=== PATIENT | female | born 1980 | race African-American/Black ===

== ENCOUNTER → 2017-07-19 | Outpatient (CLI) | payer BC ==
--- NOTE | 2017-07-19 12:25 | WWHP ---
[facility] - HISTORY AND PHYSICAL DATE OF DICTATION: 07/19/2017 CHIEF COMPLAINT: The patient is here for her routine gynecologic exam. HPI: This is a 37-year-old, G2, P0-0-2-0 with an LMP of 04/28/2017. She recently had a voluntary termination of on 06/24/2017. She states she was at approximately 5 weeks gestation. She was seen at [facility] 1-1/2 weeks ago because of abdominal pain and she states the workup was unremarkable. She was told that she has a fibroid uterus, but this does not cause her any problems. Prior to the recent , she was not using control. She was given a Depo- Provera injection on 07/05/2017 and plans to use this for control for the next 1 to 2 years. She is without gynecologic complaints. Her abdominal pains did resolve. It has been about 6 years since her last Pap smear. PAST MEDICAL HISTORY: Unremarkable. MEDICATIONS: 1. Depo-Provera 150 mg IM q.3 months, and her 1st was given on 07/05/2017. 2. She also takes vitamin D 5000 units daily. ALLERGIES: No known drug allergies. PAST SURGICAL HISTORY: VTP on 07/05/2017. PAST OB HISTORY: She had a spontaneous at age 18 and a VTP at 5 weeks gestation on 06/24/2017. 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 She has no other history of STDs. She was told she has a fibroid uterus as above. SOCIAL HISTORY: She denies tobacco and drug use and has about 2 alcohol-containing drinks per month. She is single and has been with her boyfriend since about 2016, but does not live with him. 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 FAMILY HISTORY: She is adopted, so she does not know her family history. REVIEW OF SYSTEMS: Weight has been stable. She denies respiratory, cardiac or GI problems. PHYSICAL EXAM: Blood pressure 133/70, height 5 feet 7 inches, weight 144 pounds. BMI 22, temperature 96.3, pulse 87. This is a well-developed, well-nourished, black female who is alert and oriented x3, in no acute distress. HEENT is within normal limits. NECK: Supple without mass or thyromegaly. CHEST AND LUNGS: Clear to auscultation. HEART: Regular rate and rhythm. Breasts are without mass or discharge. Axillary exam is negative for adenopathy. Back negative for CVA tenderness. ABDOMEN: Soft and nontender. There is a palpable uterus that is approximately 12 to 14 week size in the suprapubic area that is midline. This is a firm mass consistent with an enlarged uterus. There are no other palpable masses. Pelvic exam normal external genitalia. Cervix and vagina appear normal. There is no unusual discharge and no blood noted in the vagina. There is no cervical motion tenderness. The uterus is enlarged approximately 12 to 14 week size and firm consistent with fibroid uterus. It is slightly irregular and nontender. There are no palpable adnexal masses or tenderness. However, this is somewhat limited secondary to the enlarged uterus. Rectal exam is negative for mass or tenderness. EXTREMITIES: Nontender. IMPRESSION: 1. A 37-year-old female who is approximately 4 weeks status post voluntary termination of , who is now on Depo-Provera for control. 2. Enlarged uterus consistent with a 12 to 14 week-sized fibroid uterus, which is asymptomatic. PLAN: 1. Pap smear was performed. 2. Self breast examination was discussed. 3. We have had a long discussion regarding control options. She already has been started on Depo-Provera and would like to use this for up to 1 to 2 years. She understands that bone strength can decrease with Depo-Provera, especially if used longer term. I have recommended that she not use this for more than 2 years. We have discussed other options including barrier methods, other hormonal methods such as control pills, NuvaRing, and a control patch. We have also discussed the IUD including the ParaGard and Mirena IUDs. We have also discussed sterilization. We have also discussed how hormonal methods could potentiate could cause uterine fibroids to grow. She also understands Depo-Provera can have other side effects including weight gain or irregular bleeding. After a long discussion, she would like to continue on with Depo-Provera as planned. She will be getting these injections at Dr. Le's office as she received the first one. 4. STD prevention was discussed. We have discussed the importance of limiting sexual partners as well as possible condom use to prevent STDs. She states she was tested for STDs including chlamydia when she was in the emergency room 1-1/2 weeks ago and this was negative per the patient. She is declining any other STD testing at this time. 5. Osteoporosis prevention was discussed. We have discussed the importance of adequate calcium, vitamin D and regular exercise, especially with Depo-Provera use. 6. We will obtain the ultrasound report from 07/10/2017 when she was at [facility]. 7. The ACOG handout on uterine fibroids, FAQ 074 was given to the patient. 8. She will call if she is having symptoms from uterine fibroids including pelvic pressure or pelvic discomfort. 9. She will return in 1 year and p.r.n. MMHELGA / LILIAMN: [id number] /
== END | disposition home or self-care (01) ==
LOC: WWCWWP 10:40
PROVIDERS: ATTEND Obstetrics & Gynecology
DX: Z53.9 Procedure and treatment not carried out, unspecified reason (principal)

== ENCOUNTER → 2019-01-02 | Outpatient (CLI) | payer BC ==
[2019-01-02 07:51] VITALS: BP 123/84; PULSE 77; RESP 16; TEMP 98.6; BMI 22.2
--- NOTE | 2019-01-02 08:54 | P.HPOB ---
History of Present Illness H&P Date: 01/02/19 Chief Complaint: The patient is here for her routine gynecologic exam. This is a 38-year-old with an LMP of 04/28/17. The patient has been on Depo-Provera since 07/05/2017 and the 1st one was given shortly after a VTP. Her last DepoProvera injection was given in July 2018. She previously was getting them in Dr. Le's office. She would like to restart the Depo- Provera injections and would like to have them given here. She has not had a menstrual period since starting the Depo-Provera. She is not interested in any other type of hormonal control since she fears that anything containing estrogen may stimulate her uterine fibroids. She denies any symptoms from her uterine fibroids. She has been using condoms or withdrawal for control after missing her Depo-Provera injection 2 months ago. She is complaining of a slight vaginal discharge during the past 2 days and she has noticed a slight odor. The discharge is thin and resembles bacterial vaginosis which she has had before. She denies pruritus. She is otherwise without complaints. Review of Systems The patient's weight has been stable over the last year. She denies respiratory, cardiac, or G.I. problems. 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 She has no other history of STDs. She has a known fibroid uterus approximately 12 weeks size. History of Any Multi-Drug Resistant Organisms: None Reported Additional Past Surgical History / Comment(s): VTPx2. Smoking Status: Former smoker Past Alcohol Use History: Occasional (0-2 per month) Past Drug Use History: None Reported Additional History: She is single and has been with her boyfriend since 2016. They do not live together. 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 - Past Family History Father Family Medical History: Unable to Obtain Additional Family Medical History / Comment(s): The patient has no known family history since she is adopted. Medications and Allergies Home Medications Medication Instructions Recorded Confirmed Type No Known Home Medications 01/02/19 01/02/19 History Allergies Allergy/AdvReac Type Severity Reaction Status Date / Time No Known Allergies Allergy Unverified 01/02/19 07:51 Exam Vital Signs Temp Pulse Resp BP Pulse Ox 01/02/19 07:43 98.6 F 77 16 123/84 100 Intake and Output 01/01/19 01/02/19 01/02/19 22:59 06:59 14:59 Other: Weight 64.41 kg Height 5'7", weight 142 pounds, BMI 22.2. This is a well-developed well-nourished black female who is alert and oriented times 3 in no acute distress. HEENT: Within normal limits. NECK: Supple without mass or thyromegaly. CHEST AND LUNGS: Clear to auscultation. HEART: Regular rate and rhythm. BREASTS: Are without mass or discharge. AXILLARY EXAM: Negative for adenopathy. BACK: Negative for CVA tenderness. ABDOMEN: Soft, nontender, without palpable masses. PELVIC EXAM: Normal external genitalia. Cervix and vagina appear normal. There is a small thin grayish discharge without significant odor. There is no evidence of prolapse. The uterus is midposition, 12 week size and nontender. There are no palpable adnexal masses or tenderness. RECTAL EXAM: negative for mass or tenderness. EXTREMITIES: Nontender. IMPRESSION: 1. 38-year-old female with a 12 week size fibroid uterus which is asymptomatic. 2. Probable bacterial vaginosis. 3. Amenorrhea since starting Depo-Provera injections. She did not have a Depo- Provera injection after her one given in July of this year. She would like to resume Depo-Provera injections here. Plan: 1. Pap smear was deferred since she had a normal one on 07/19/2017. 2. Self breast awareness was discussed with the patient. 3. Metronidazole 500 mg PO BID times 7 days. 4. We had a long discussion regarding control options. She would like to stay on Depo-Provera injections and she would like to use this for about one yea r. She understands that she may not be able to become for up to 18 months after Depo-Provera is discontinued. We also discussed how fertility may decrease with time especially over the age of 40. We also discussed increased risk for chromosomal abnormalities such as down syndrome as she gets older if she is to get . We also again reviewed how Depo-Provera can decrease bone strength with time. We have discussed other options such as the progestin only -control pill as well as barrier methods. She understands these things and would like to restart Depo-Provera. 5. she was instructed to abstain from sexual activity until Depo-Provera is given. She was scheduled in one week on 01/09/2019 to receive her Depo-Provera injection. She will do a serum beta hCG test the day prior to her appointment and she understands that she cannot be given the injection if she is . Depo-Provera 150 mg IM Q3 months. The electronic prescription for this and of the metronidazole will be sent to [facility] pharmacy on in [place]. 6.Osteoporosis prevention was discussed. I have stressed the importance of adequate calcium, vitamin D and regular exercise. Recommended amounts of calcium and vitamin D were also discussed. 7. She will return every 3 months for her Depo-Provera injections. She was advised to return in one year for her annual well woman exam.
== END ==
LOC: WWCWWP 07:25
PROVIDERS: ATTEND Obstetrics & Gynecology
DX: Z53.9 Procedure and treatment not carried out, unspecified reason (principal)

== ENCOUNTER → 2019-01-04 | Outpatient (CLI) | payer BC | END | disposition home or self-care (01) | LOC: LABWHC1 16:35 | PROVIDERS: ATTEND Obstetrics & Gynecology | DX: Z32.00 Encounter for pregnancy test, result unknown (principal); N91.1 Secondary amenorrhea | CPT/HCPCS: 36415; 84702 ==

== ENCOUNTER → 2019-01-09 | Outpatient (CLI) | payer BC ==
[2019-01-09 08:41] VITALS: BP 125/84; PULSE 67; RESP 16; TEMP 98.1; BMI 22.8
--- NOTE | 2019-01-09 09:00 | P.PN ---
Progress Note - Text Progress Note Date: 01/09/19 The patient is here for her Depo-Provera injection. This will be her 6th injection. Depo-Provera was started in June 2017 following a VTP. She chose to have a brief break from Depo-Provera and her last in injection was in July 2018. Quantitative beta hCG was negative on 01/04/2019. Her last sexual activity was prior to 01/02/2019. Her LMP was 04/28/2017 Blood pressure: 125/84, height 5'7", weight 146 pounds, temperature 98.1, pulse 67, respiratory rate normal, pulse oximeter 100% This is a well-developed black female who is alert and oriented times 3 in no acute distress. Medroxyprogesterone acetate injectable suspension 150 mg/mL lot number [id number] expiration: 11/11/2022 serial number: [id number] A 1 mL intramuscular injection was made into the asked deltoid muscle. Impression: Depo-Provera injection(#6) administration Plan: She will return in 3 months for her next Depo-Provera injection. We have discussed alternate methods of control. I have recommended that she choose a different method of control for longer-term contraception because of the risk of bone strength loss.
== END | disposition home or self-care (01) ==
LOC: WWCWWP 08:20
PROVIDERS: ATTEND Obstetrics & Gynecology
DX: Z53.9 Procedure and treatment not carried out, unspecified reason (principal)

== ENCOUNTER → 2022-05-03 | Outpatient (CLI) | payer MEDICAID ==
--- NOTE | 2022-05-03 14:59 | US ---
EXAMINATION TYPE: US thyroid st tissue head/neck DATE OF EXAM: 05/03/2022 COMPARISON: NONE CLINICAL HISTORY: E04.1 nontoxic single thyroid nodule. Thyroid nodules. GLAND SIZE: Right Lobe: 5.8 x 1.9 x 1.6 cm Overall Parenchyma: heterogenous Left Lobe: 6.3 x 2.9 x 3.1 cm Overall Parenchyma: heterogeneous Isthmus Thickness: 1.0 cm NODULES RIGHT: # of nodules measured on right: 1 1. 1.5 X .8 x 1.3 cm, mid , mixed cystic and solid, hypoechoic nodule, which is wider than tall, wi th smooth margins, without echogenic foci. TR 3. Prior size: No previous. LEFT: # of nodules measured on left: Multiple measured largest. 1. 2.3 X 1.8 x 2.2 cm, lower lateral, solid or almost completely solid, hypoechoic nodule, which is wider than tall, with smooth margins, without echogenic foci. TR 4. Prior size: No previous. 2. 2.7 X 2.7 x 2.4 cm, upper , solid or almost completely solid, hypoechoic nodule, which is wider than tall, with smooth margins, without echogenic foci. TR 4. Prior size: No previous. ISTHMUS: # of nodules measured in the isthmus: 2 1. 2.3 X 1.5 x 2.2 cm mixed cystic and solid, hypoechoic nodule, which is wider than tall, with smo oth margins, without echogenic foci. TR 3. Prior size: No previous. 2. 2.8 x .9 x 1.6 cm mostly solid hypoechoi nodule, which is wider than tall, with smooth margins, w ithout echogenic foci. TR 4. Bilateral neck scanned, no evidence of lymphadenopathy. IMPRESSION: Multiple bilateral thyroid lobe nodules as described above. FNA as clinically indicated. 2017 ACR TI-RADS LEVEL: TR-RADS 4 - Moderately Suspicious: Follow if > 1 cm, FNA if > 1.5 cm *Highest TI-RADS level nodule reported
== END | disposition home or self-care (01) ==
LOC: RADUSWWP 14:06
PROVIDERS: ATTEND Family Medicine
DX: E04.2 Nontoxic multinodular goiter (principal)
CPT/HCPCS: 76536

== ENCOUNTER → 2022-06-07 | Outpatient (CLI) | payer MEDICAID ==
[2022-06-07 10:22] LABS: Basophils # (A) 0.03 X 10*3/uL (0.00-0.10); Basophils % (A) 0.6 %; Eosinophils # (A) 0.27 X 10*3/uL (0.04-0.35); Eosinophils % (A) 5.1 %; HCT 37.9 % (37.2-46.3); HGB 12.4 g/dL (12.0-15.0); Immature Grans, Automated 0.4 %; Lymphocytes # (A) 2.18 X 10*3/uL (0.90-5.00); Lymphocytes % (A) 41.5 %; MCH 30.7 pg (27.0-32.0); MCHC 32.7 g/dL (32.0-37.0); MCV 93.8 fL (80.0-97.0); Mean Platelet Volume 9.9 fL (9.5-12.2); Monocytes # (A) 0.38 X 10*3/uL (0.20-1.00); Monocytes % (A) 7.2 %; NRBC Per 100 WBC 0 /100 WBCS (0.0-0.0); Neutrophils # (A) 2.37 X 10*3/uL (1.80-7.70); Neutrophils % (A) 45.2 %; Platelet Count 310 X 10*3/uL (140-440); RBC 4.04 X 10*6/uL (4.10-5.20); RDW 13.5 % (11.5-14.5); WBC 5.25 X 10*3/uL (4.50-10.00)
[2022-06-07 10:48] LABS: Rheumatoid Factor, Qnt <10 IU/mL (0-15)
[2022-06-07 11:02] LABS: % Iron Saturation 18.81 (12.00-45.00); ALT 11 U/L (8-44); AST 13 U/L (13-35); African American GFR (CKD) 105.4 (60.0-200.0); Albumin 4.4 g/dL (3.8-4.9); Albumin/Globulin Ratio 1.57 (1.60-3.17); Alkaline Phosphatase 64 U/L (41-126); BUN/Creat Ratio 15.25 Ratio (12.00-20.00); Blood Urea Nitrogen 12.2 mg/dL (9.0-27.0); C Reactive Protein <0.30 mg/dL (0.00-0.80); Calcium 9.3 mg/dL (8.7-10.3); Carbon Dioxide 22.3 mmol/L (20.0-27.5); Chloride 107 mmol/L (96-109); Globulin 2.8 g/dL (1.6-3.3); Glucose 102 mg/dL (70-110); Iron 69 ug/dL (50-170); Non-African American GFR(CKD) 90.9 (60.0-200.0); Potassium 4.3 mmol/L (3.5-5.5); Sodium 139 mmol/L (135-145); Total Bilirubin <0.15 mg/dL (0.30-1.20); Total Iron Binding Capacity 367 ug/dL (228-460); Total Protein 7.2 g/dL (6.2-8.2)
[2022-06-07 12:11] LABS: Erythrocyte Sedimentation Rate 14 mm/Hr (0-20)
[2022-06-07 13:40] LABS: Cyclic Citrull Pep IgG Unit <0.5 U/mL; Cyclic Citrullinated Pep IgG NEGATIVE (NEGATIVE)
== END | disposition home or self-care (01) ==
LOC: LABWHC1 07:38
PROVIDERS: ATTEND Nurse Practitioner Family
DX: D50.9 Iron deficiency anemia, unspecified (principal); E04.2 Nontoxic multinodular goiter; R70.0 Elevated erythrocyte sedimentation rate; R53.83 Other fatigue
CPT/HCPCS: 36415; 80053; 82607; 82746; 83540; 83550; 83970; 84439; 84443; 84481; 85025; 85652; 86038; 86140; 86200; 86431

== ENCOUNTER → 2022-10-06 | Outpatient (CLI) | payer MEDICAID ==
[2022-10-06 11:39] LABS: HGB 12.5 gm/dL (11.4-16.0); MCH 30.5 pg (25.0-35.0); MCHC 31.9 g/dL (31.0-37.0); MCV 95.7 fL (80.0-100.0); Platelet Count 368 k/uL (150-450); RBC 4.08 m/uL (3.80-5.40); RDW 13.6 % (11.5-15.5); WBC 8.1 k/uL (3.8-10.6)
[2022-10-06 19:31] LABS: HIV 2 AB Non-Reactive (Non-Reactive); HIV AB P24 Non-Reactive (Non-Reactive); HIV P24 AG Non-Reactive (Non-Reactive)
[2022-10-07 13:25] LABS: C. trachomatis,PCR Negative (Neg,Equiv); Chlamydia trachomatis Source Urine; N. gonorrhoeae,PCR Negative (Neg,Equiv); Neisseria Source Urine
== END | disposition home or self-care (01) ==
LOC: LABWHC1 10:18
PROVIDERS: ATTEND Obstetrics & Gynecology Obstetrics
DX: Z11.8 Encounter for screening for other infectious and parasitic diseases (principal); Z72.51 High risk heterosexual behavior; N89.8 Other specified noninflammatory disorders of vagina; N92.0 Excessive and frequent menstruation with regular cycle
CPT/HCPCS: 36415; 85027; 86780; 87340; 87390; 87491; 87591

== ENCOUNTER → 2022-12-07 | Outpatient (CLI) | payer MEDICAID ==
[2022-12-08 04:19] LABS: Blood Urea Nitrogen 15.4 mg/dL (9.0-27.0); Carbon Dioxide 24.8 mmol/L (21.6-31.8); Chloride 103 mmol/L (96-109); Glucose 98 mg/dL (70-110); Potassium 4.4 mmol/L (3.5-5.5); Sodium 137 mmol/L (135-145)
[2022-12-08 04:24] LABS: Basophils # (A) 0.05 X 10*3/uL (0.00-0.10); Basophils % (A) 0.8 %; Eosinophils # (A) 0.31 X 10*3/uL (0.04-0.35); HCT 35.3 % (37.2-46.3); HGB 11.7 d/dL (12.0-15.0); Lymphocytes # (A) 3.25 X 10*3/uL (0.90-5.00); Lymphocytes % (A) 52.2 %; MCH 30.8 pg (27.0-32.0); MCHC 33.1 d/dL (32.0-37.0); MCV 92.9 FL (80.0-97.0); Mean Platelet Volume 9.6 FL (9.5-12.2); NRBC Per 100 WBC 0 X 10*3/uL (0.00-0.01); Neutrophils # (A) 2.11 X 10*3/uL (1.80-7.70); Neutrophils % (A) 33.8 %; Platelet Count 326 X 10*3/uL (140-440); RDW 13.7 % (11.5-14.5); WBC 6.23 X 10*3/uL (4.50-10.00)
== END | disposition home or self-care (01) ==
LOC: LABPAT 07:33
PROVIDERS: ATTEND Obstetrics & Gynecology Obstetrics
DX: Z01.812 Encounter for preprocedural laboratory examination (principal); D25.9 Leiomyoma of uterus, unspecified; N92.0 Excessive and frequent menstruation with regular cycle
CPT/HCPCS: 80051; 82565; 82947; 84520; 85025; 87086

== ENCOUNTER 2022-12-26 07:15 | Day surgery (SDC) | payer MEDICAID ==
[2022-12-20 09:13] VITALS: BMI 21.9
[2022-12-26] MEDS ORDERED: HYDROmorphone 0.5 MG/0.5 ML SYRINGE IVP PRN (07:35)
[2022-12-26] MEDS ORDERED: droPERidol 5 MG/2 ML VIAL IVP PRN (07:35)
[2022-12-26] MEDS ORDERED: ONDANSETRON 4 MG/2 ML VIAL IVP ONE (07:35)
[2022-12-26] MEDS ORDERED: DEXAMETHASONE SOD PHOSPHATE 4 MG/ML 1 ML VIAL IV ONE (07:35)
[2022-12-26] MEDS ORDERED: LIDOCAINE 1% (10MG/ML) FOR IV START INTRADERMA PRN (07:35)
[2022-12-26] MEDS ORDERED: LACTATED RINGERS 1,000 ML IV ONE ×2 (08:00→10:55)
[2022-12-26] MEDS ORDERED: ACETAMINOPHEN IV (For NPO) 1,000 MG/100 ML VIAL ONE (09:24)
[2022-12-26] MEDS ORDERED: GLYCOPYRROLATE 0.2 MG/ML 2 ML VIAL ONE (09:24)
[2022-12-26] MEDS ORDERED: KETOROLAC 15 MG/ML 1 ML VIAL ONE (09:24)
[2022-12-26] MEDS ORDERED: SUCCINYLCHOLINE CHLORIDE 200 MG/10 ML VIAL IV ONE (09:24)
[2022-12-26] MEDS ORDERED: fentaNYL (PF) 50 MCG/ML 2 ML AMP ONE (09:24)
[2022-12-26] MEDS ORDERED: ROCURONIUM 10 MG/ML (5 ML VIAL) IV ONE (09:24)
[2022-12-26] MEDS ORDERED: PROPOFOL 10 MG/ML 20 ML VIAL IV ONE (09:24)
[2022-12-26] MEDS ORDERED: HYDROmorphone (PF) 1 MG/ML ONE (09:24)
[2022-12-26] MEDS ORDERED: MIDAZOLAM 2 MG/2 ML VIAL ONE (09:24)
[2022-12-26] MEDS ORDERED: NEOSTIGMINE 1 MG/ML 10 ML VIAL ONE (09:24)
[2022-12-26] MEDS ORDERED: LIDOCAINE 2% INJ 20 MG/ML (2 ML VIAL) ONE (09:24)
[2022-12-26] MEDS ORDERED: BUPIVACAINE (PF) 0.25% 10 ML VIAL SQ ONE ×2 (10:07→11:09)
[2022-12-26] MEDS ORDERED: ONDANSETRON 4 MG/2 ML VIAL IVP PRN (11:18)
[2022-12-26] MEDS ORDERED: ACETAMINOPHEN IV (For NPO) 1,000 MG in EMPTY BAG 1 BAG IVPB ONE (11:18)
[2022-12-26] MEDS ORDERED: SIMETHICONE 80 MG CHEWABLE PO PRN (11:18)
[2022-12-26] MEDS ORDERED: Acetaminophen-Codeine 300-30mg TAB PO PRN (11:18)
--- NOTE | 2022-12-26 11:27 | P.OP ---
Date of Procedure: 12/26/22 Preoperative Diagnosis: Uterine fibroids, heavy menstrual bleeding Postoperative Diagnosis: Same Procedure(s) Performed: Robotic-assisted vaginal hysterotomy, bilateral salpingectomy, diagnostic cystoscopy Anesthesia: MEÑOA Surgeon: Barbie Pelayo Content Management Specialist #1: Dede Preston Estimated Blood Loss (ml): 10 IV fluids (ml): 700 Urine output (ml): 75 Pathology: other (Uterus cervix bilateral fallopian tubes) Condition: stable Disposition: PACU Indications for Procedure: Enlarged uterus with fundal fibroid, heavy menstrual bleeding Operative Findings: Fundal fibroid is appreciated approximately 6 cm, uterus is mobile, normal ovaries bilaterally. Normal cystoscopy performed at the end of the procedure Description of Procedure: Patient was taken back to the operating suite where general anesthesia was obtained without difficulty by the anesthesia department. She was prepped and draped in normal sterile fashion in the dorsal lithotomy position. A Daniel catheter was then placed under sterile technique. Weighted speculum was placed the posterior vaginal vault the anterior lip of the cervix was visualized and grasped with a single-tooth tenaculum. The endocervical canal was then serially dilated and a V care uterine macular please was advanced into the endometrial cavity as a means to manipulate the uterus throughout the procedure. Once the balloon was insufflated with air all instruments were removed from the patient's vaginal vault and the cervical cap was placed snugly against the cervix. Attention then turned the patient's abdomen where a proximally 2 finger breaths above the umbilicus a small skin incision is made. Through the skin incision the various needle is placed, once the Veress needle was deemed to be in the proper position with a drop of CO2 pressure with insufflation of CO2 gas CO2 insufflation was allowed to occur. Approximately 3 L of gas or used to obtain pneumoperitoneum. An 8 mm operative da Jeanna trocar was then placed through the skin incision and toward the pneumoperitoneum with a cost analyst scope in placed. The above-noted findings were visualized. The additional port sites are placed 10 cm lateral and 370 m inferior to midline port these are 8 mm operative ports placed under direct visualization. In the left upper quadrant a 12 mm skin incision is made and a 12 mm trocar and sleeve is placed under direct visualization. At this time the da Jeanna robot was docked in the usual fashion. In the right operative arm the monopolar scissors is placed, and the left operative arm the bipolar forceps is placed. Attention was then turned the patient's right fallopian tube which was elevated, the mesosalpinx was coagulated and transected. This continued toward the uterine ovarian ligament w hich was coagulated distally and proximally divided. The round ligament was then coagulated distally and proximally divided. The bladder flap from the right was then created using sharp and blunt dissection. Attention was then turned the patient's left fallopian tube which was elevated and mesosalpinx was "coagulated and transected. This continued toward the uterine ovarian ligament which was coagulated distally and proximally divided. The round ligament was coagulated distally and proximal plane divided with good hemostasis appreciated throughout. The bladder flap from the left was then created using sharp and blunt dissection. The ascending branch the uterine artery from the left was visualized, coagulated and transected. Hemostasis was noted. This was then repeated on the opposite side. At this time a Ray-Ac was advanced into the abdomen to further dissect the bladder away from the operating field. This was then removed. At this time the only remaining attachment was a vaginal attachment therefore a colpotomy incision was made in a circumferential fashion. The uterus fibroid bilateral fallopian tubes was delivered through the vaginal opening. The pelvis was then copiously irrigated. The vaginal cuff was closed with 0 Vicryl. A proximally 5 [id number] sutures of 0 Vicryl used to obtain closure. Hemostasis was noted to closure. The pelvis then copiously irrigated. At this time hemostasis was noted in all instruments removed from the patient's abdomen. The robot was undocked in the usual fashion. Attention was then turned the patient's Daniel catheter which was noted to be draining clear yellow urine and was removed. A cystoscope was performed. The cystoscope was placed through the urethra toward the bladder bladder bubble was appreciated a complete survey of the bladder revealed normal mucosa with both ureteral orifices spilling clear yellow urine. The cystoscope was removed and the Daniel catheter was replaced. Attention turned to the patient's abdomen where the skin incisions were closed with 4-0 Vicryl in a subarticular fashion. Steri-Strips and sterile dressings were applied. All counts were noted to be correct 2 at the end of the procedure. Patient tolerated procedure well and was taken the recovery room awake in stable condition.
[2022-12-26 14:20] VITALS: RESP 16
[2022-12-26] MEDS: Acetaminophen-Codeine 300-30mg TAB PO PRN ×2 (14:26→20:35)
[2022-12-26] MEDS: LACTATED RINGERS 1,000 ML IV SCH (19:33)
[2022-12-26] MEDS: SENNOSIDES-DOCUSATE SODIUM 1 EACH TAB PO SCH (20:35)
[2022-12-26] MEDS: IBUPROFEN 600 MG TAB PO PRN (22:38)
[2022-12-27] MEDS: Acetaminophen-Codeine 300-30mg TAB PO PRN ×3 (03:13→14:07)
[2022-12-27] MEDS: IBUPROFEN 600 MG TAB PO PRN ×2 (04:56→10:52)
[2022-12-27 07:18] LABS: Basophils % (A) 0 %; Eosinophils # (A) 0.1 k/uL (0-0.7); Eosinophils % (A) 1 %; HCT 36.6 % (34.0-46.0); HGB 12.2 gm/dL (11.4-16.0); Lymphocytes # (A) 2.2 k/uL (1.0-4.8); Lymphocytes % (A) 26 %; MCH 31.9 pg (25.0-35.0); MCHC 33.5 g/dL (31.0-37.0); MCV 95.2 fL (80.0-100.0); Mean Platelet Volume 7.9; Monocytes # (A) 0.4 k/uL (0-1.0); Monocytes % (A) 4 %; Neutrophils # (A) 5.8 k/uL (1.3-7.7); Neutrophils % (A) 68 %; Platelet Count 250 k/uL (150-450); RBC 3.84 m/uL (3.80-5.40); RDW 13.5 % (11.5-15.5); WBC 8.4 k/uL (3.8-10.6)
[2022-12-27] MEDS: SENNOSIDES-DOCUSATE SODIUM 1 EACH TAB PO SCH (08:00)
[2022-12-27] MEDS: LACTATED RINGERS 1,000 ML IV SCH (08:12)
--- NOTE | 2022-12-27 08:45 | P.DS ---
Providers Date of admission: 12/26/2022 Expected date of discharge: 12/27/22 Attending physician: Barbie Pelayo Primary care physician: Griffin Oh - Discharge Diagnosis(es) (1) Heavy menstrual bleeding Current Visit: Yes Status: Acute (2) Uterine fibroid Current Visit: Yes Status: Acute Hospital Course: This is a 42-year-old female that presented yesterday for scheduled robotic cyst vaginal hysterotomy with bilateral salpingectomy, diagnostic cystoscopy. Patient had a known history of uterine fibroids with heavy menstrual bleeding. Uterus is noted to be enlarged in addition. Patient elected definitive therapy given her symptoms. For full details on this patient please see the dictated history and physical. Patient was taken back to the operating room where robotic cyst vaginal structure me with bilateral salpingectomy, diagnostic cystoscopy was performed without complication. Uterus was noted to be enlarged with large fundal fibroid on examination. Patient's postoperative course has been complicated by urinary retention. Patient had her Daniel catheter removed between 11 and 12 last evening, patient was unable to void until just prior to this dictation when she voided 400 mL. Patient is noting pain status post surgery but is controlled with Tylenol 3, Motrin. Patient is desirous of discharge home later today. Patient denies vaginal bleeding. Patient Condition at Discharge: Good Plan - Discharge Summary Discharge Rx Participant: Yes New Discharge Prescriptions: No Action Ergocalciferol [Vitamin D2 (1250 Mcg = 03316 Iu)] 1,250 mcg PO Discharge Medication List Ergocalciferol [Vitamin D2 (1250 Mcg = 93730 Iu)] 1,250 mcg PO 11/22/22 [History] Follow up Appointment(s)/Referral(s): Barbie Pelayo DO [Doctor of Osteopathic Medicine] - 2 Weeks Patient Instructions/Handouts: Laparoscopic Hysterectomy (DC), Laparoscopic Hysterectomy (GEN) Activity/Diet/Wound Care/Special Instructions: no tub baths or intercourse until 8 weeks post operatively. tylenol # 3 as needed for pain, alternating with motrin. she is to call and schedule a routine post operative appointment in 2 weeks. should she have any concerns prior to this appointment she is to call the office. vaginal bleeding postoperatively as discussed, she may experience a light to period like flow postoperatively. Discharge Disposition: HOME SELF-CARE
[2022-12-27] MEDS ORDERED: ACETAMINOPHEN TAB 325 MG TAB PO PRN (11:20)
[2022-12-27 14:18] VITALS: BP 120/75; PULSE 54; TEMP 98.2
== END 2022-12-27 15:00 | disposition home or self-care (01) ==
LOC: OR 07:15 → 4FBP 11:38 → OR 12-27 15:00
PROVIDERS: ATTEND Obstetrics & Gynecology Obstetrics
DX: D25.1 Intramural leiomyoma of uterus (principal); Z79.899 Other long term (current) drug therapy
CPT/HCPCS: 81025; 86900; 86901; 85025; 86850; 88307; 58262; J2250; J0330; J1100; J2710; J0690; J2405; J3010; J1170 ×2; J0131; J1885; J2704; J2001; J0665